=== PATIENT | male | born 1950 | race Caucasian/White ===

== ENCOUNTER 2021-08-18 11:28 | Outpatient (CLI) | payer OTHER, SELFPAY ==
[2021-08-18 13:24] LABS: Source Nasal/Nares
[2021-08-18 15:52] LABS: COVID-19 PCR Negative (Negative)
== END 2021-08-18 11:29 | disposition home or self-care (01) ==
PROVIDERS: PCP Family Medicine; Visit Provider Ophthalmology
DX: Z20.822 Contact with and (suspected) exposure to COVID-19 (principal); Z01.818 Encounter for other preprocedural examination
CPT/HCPCS: 87635

== ENCOUNTER 2021-08-21 06:44 | Day surgery (SDC) | payer OTHER, SELFPAY ==
[2021-08-21 07:15] VITALS: BP 158/117; PULSE 82; RESP 16; TEMP 36.3; O2SAT 98
[2021-08-21] MEDS: Tropicam./Phenyleph. (1/2.5%) 5 ML BTL OD ×3 (07:29→07:40)
[2021-08-21 07:40] VITALS: BP 147/88; PULSE 62; RESP 16; O2SAT 97
--- NOTE | 2021-08-21 07:48 | W.ANESPRE ---
General Info Date of Service Date Performed: 08/21/21 Height: 5 ft 11 in Weight: 100.2 kg Body Mass Index (BMI): 30.8 Surgical Procedure: Operation Date: 08/21/21 08:40 Proposed Procedures Side Surgeon p Cataract Extraction with IOL Implant Right Manny Campos MD Meds Allergies and Home Medications Allergies Allergy/AdvReac Type Severity Reaction Status Date / Time bee venom protein (honey bee) Allergy Severe Anaphylaxis Unverified 08/21/21 07:17 hornet venom Allergy Severe Anaphylaxis Unverified 08/21/21 07:17 oxycodone Allergy Intermediate Hives Unverified 08/21/21 07:17 Home Medication Medication Instructions Recorded adalimumab [Humira(CF) Pen] 40 mg SUBCUT DIRECTED 08/17/21 celecoxib 200 mg PO DAILY PRN 08/17/21 cholecalciferol (vitamin D3) 25 mcg PO DAILY 08/17/21 [Vitamin D3] epinephrine 0.3 ml IM DIRECTED 08/17/21 lisinopril 20 mg PO DAILY 08/17/21 pantoprazole [Protonix] 40 mg PO DAILY 08/17/21 rivaroxaban [Xarelto] 20 mg PO DIRECTED 08/17/21 rosuvastatin 5 mg PO DAILY 08/17/21 tamsulosin 0.8 mg PO DAILY 08/17/21 Current Visit Medications: Current Medications Generic Name Dose Route Start Last Admin Trade Name Freq PRN Reason Stop Dose Admin Acetaminophen 1,000 mg 08/21/21 06:00 Acetaminophen 500 Mg Tab PO Q4H PRN PRN Miscellaneous Medication 0 ml 08/21/21 06:00 Prednisolone 1%, Moxifloxacin 0.5%, Nepafenac 0.1% 5ml Btl OD DIRECTED [facility] Miscellaneous Medication 0 ml 08/21/21 06:00 08/21/21 07:40 Tropicam./Phenyleph. 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 now dvt x2 superficial saphenous bein thombosis 06/2008 Hypercholesteremia Iron deficiency anemia KEYANA on CPAP Psoriatic arthritis Sacroiliitis Spondylosis of lumbar joint Thyroid nodule Urinary frequency Surgical History Surgical History History of back surgery History of tonsillectomy Hx of adenoidectomy Hx of colonoscopy Hx of esophagogastroduodenoscopy Tobacco Smoking/Tobacco Use Status: Never Alcohol Alcohol Intake: current Alcohol intake frequency: 0-2 drinks per day Alcohol type: hard liquor Substance Use Substance use: Never Substance use type: does not use Vital Signs and Lab Results Vital Signs Most Recent Vital Signs in EMR: Most Recent Vital Signs Temp Pulse Resp BP Pulse Ox 36.3 C L 62 16 147/88 H 97 08/21/21 07:15 08/21/21 07:40 08/21/21 07:40 08/21/21 07:40 08/21/21 07:40 Lab Results Blood Type / Crossmatch: No Data to Display Complete Blood Count: No Data to Display Complete Metabolic Panel: No Data to Display Liver Function Panel: No Data to Display Coagulation Panel: No Data to Display Cardiac Panel: No Data to Display Arterial Blood Gas: No Data to Display Venous Blood Gas: No Data to Display Pancreas Panel: No Data to Display Thyroid Panel: No Data to Display Infectious Disease: Coronavirus (COVID-19)(PCR) Negative (Negative) 08/18/21 09:21 08/18/21 Coronavirus 2019 Source Nasal/Nares 08/18/21 09:21 08/18/21 Blood Cultures: No Data to Display Toxicology Panel: No Data to Display Anesthesia Assessment and Plan Anesthesia History Personal History: No History of Anesthesia Complications Family History: No Family History of Anesthesia Complications Exercise Tolerance Exercise Tolerance: Metabolic Equivalents>4 Pertinent Negatives Pertinent Negatives: No Symptoms of GERD (Well controlled with med), No Major Cardiovascular Symptoms or Complaints, No Major Pulmonary Symptoms or Complaints and No History of CVA/TIA Cardiac & Pulmonary Exam Cardiac Exam: Normal S1/S2 Heart Sounds Pulmonary Exam: Clear Bilateral Breath Sounds Cardiac and Pulmonary Comment:: Not currently using CPAP due to recall Airway Exam Known Difficult Airway: No Mallampati Class: 1 Mouth Opening: Normal (> 3cm) Thyromental Distance: Greater than 3 cm Neck Range of Motion: Full ROM Neck Circumference: Normal Teeth Condition: Normal Dentition and Removable Dentures/Plates Upper (Partial) ASA Classification ASA Score: ASA 2 Emergency Case?: No NPO Status NPO Status: NPO Clears >2 hours, Solids >8 hours Anesthesia Plan Resuscitation Status: Full Code Anesthesia Technique: MAC Anesthesia Airway Planned: Natural Airway Monitors Used: Standard Monitors
[2021-08-21 07:52] VITALS: BMI 30.8
[2021-08-21] MEDS: Tetracaine 0.5% 4 ML BTL OD (08:11)
[2021-08-21] MEDS: Povidone-Iodine Ophth 30 ML BTL (08:12)
[2021-08-21] MEDS: Lidocaine 2% Jelly 6 ML SYR (08:12)
[2021-08-21] MEDS: Duovisc Viscoelastic System EACH 1 EACH (08:14)
[2021-08-21] MEDS: Balanced Salt Soln.-PLUS 500 ML BAG (08:14)
[2021-08-21] MEDS: Lidocaine 1% Pres-Free 5 ML VIAL (08:15)
--- NOTE | 2021-08-21 08:34 | W.PM.DSUDISC ---
Discharge Plan Disposition Patient Disposition: HOME Condition: Good Discharge Details Attending Provider: Manny Campos Primary Care Provider: Hermilo Washingtno Home Meds and New Rx's Prescriptions: No Action celecoxib 200 mg capsule 200 mg PO DAILY PRNRF: 0 lisinopril 20 mg tablet 20 mg PO DAILY RF: 0 tamsulosin 0.4 mg capsule 0.8 mg PO DAILY RF: 0 pantoprazole [Protonix] 40 mg tablet,delayed release (DR/EC) 40 mg PO DAILY RF: 0 epinephrine 0.3 mg/0.3 mL auto-injector 0.3 ml IM DIRECTED RF: 0 rosuvastatin 5 mg tablet 5 mg PO DAILY RF: 0 cholecalciferol (vitamin D3) [Vitamin D3] 25 mcg (1,000 unit) Tablet,Chewable 25 mcg PO DAILY RF: 0 Xarelto 20 mg tablet 20 mg PO DIRECTED RF: 0 Humira(CF) Pen 40 mg/0.4 mL pen injector kit 40 mg SUBCUT DIRECTED RF: 0 Discharge Instructions Stand Alone Forms: Post-op Topical Cataract, Ashok Hanson ([facility]U) Discharge Orders Discharge Orders: Discharge Order (Routine); Ordered 08/21/21 Ordered By: Manny Campos DS: Diagnosis Discharge Diagnosis (1) Cortical cataract of right eye: Status: Resolved (2) Nuclear sclerotic cataract of right eye: Status: Resolved
--- NOTE | 2021-08-21 08:35 | W.PM.OP ---
Date of service: 08/21/21 Time of Service: 08:35 Operative Note Operative Note DATE OF PROCEDURE: 08/21/21 PRE-OP DIAGNOSIS: Nuclear/cortical cataract, right eye Poorly dilating pupil, right eye POST-OP DIAGNOSIS: same PROCEDURE: 1. Cataract extraction by phacoemulsification with intraocular lens implantation, right eye, with pupillary expansion device SURGEON: Manny Campos ANESTHESIA TYPE: Local By Surgeon and MAC Refer to Anesthesia Record PATHOLOGY: none sent COMPLICATIONS: None Patient was transported to: same day Patient's condition: stable Implants: Nomi and Nomi / [employer] Tecnis [id number] Indications: Progressive decreased vision due to cataract, right eye, with poorly dilating pupil Procedure Description: CATARACT SURGERY OPERATIVE REPORT PREOPERATIVE DIAGNOSIS: 1. Nuclear/cortical cataract, right eye 2. Poorly dilating pupil, right eye POSTOPERATIVE DIAGNOSIS: Same OPERATION: 1. Cataract extraction using phacoemulsification with posterior chamber intraocular lens implant, right eye. 2. Pupillary dilation and iris stabilization using Malyugin Ring IOL: IOL Product Manufacturing Professional/Model: Nomi & Nomi / LEO Tecnis [id number] IOL Power: + 17.5 diopters IOL Serial Number: [id number] Optic Diameter: 6.0mm Haptic/Overall Diameter: 13.0mm PHACO INFO: Edgar Digifyurion Vision System with OZil and Active [employer]uidics Cumulative Dispersed Energy (CDE): 7.39 seconds SURGEON: Manny Campos MD, KENNETH ANESTHESIA: Monitored Anesthesia Care (MAC), with local sub-tenon's anesthetic infiltration COMPLICATIONS: None SPECIMENS: None INDICATIONS FOR PROCEDURE: The patient is a 71-year-old gentleman with history of diminished visual acuity in his right eye secondary to the development of nuclear and cortical cataract. The option of cataract surgery was offered to the patient and he felt he was symptomatic enough that he wished to proceed. PROCEDURE: The correct surgical eye was identified and marked as the right eye and the pupil was dilated in the preoperative area using mydriatics and cycloplegics. The dilated pupil size was 3.5 mm. He elected to proceed without oral sedation.. The patient was brought to the operating room where cardiopulmonary monitoring was instituted and surgical time-out was performed, confirming the correct operative eye and IOL power. Topical anesthesia was administered and ophthalmic povidone-iodine 5% was instilled into the conjunctival fornices. Lidocaine gel was applied to the cornea and the chriss-ocular area was prepped with Betadine 10% solution and draped in the usual sterile fashion for intraocular surgery, including an aperture drape. A Tegaderm transparent film dressing was cut in half and used to cover the lashes and lid margins. Care was taken to sequester the lashes and lid margins under the Tegaderm dressing. A lid speculum was placed between the lids of the operative eye and the Priscila-Graham operating microscope was maneuvered into position. Marquis scissors were then used to make a conjunctival buttonhole approximately 6mm posterior to the limbus in the inferonasal quadrant. Blunt dissection was carried out to expose bare sclera, and a blunt-tipped sub-tenon?s anesthesia cannula was introduced and passed posteriorly along the globe where non-preserved plain lidocaine was injected into posterior sub-Tenon?s space. A sideport knife was used to make a paracentesis port inferiortemporally. Intraocular phenylephrine/lidocaine was injected in the anterior chamber. The anterior chamber was filled with viscoelastic. A 2.4mm keratome knife was used to create a half-thickness groove at the limbus and then to construct a three-plane near-clear corneal tunnel extending 2.0mm into clear cornea superiortemporally. A 7.0 mm Malyugin Ring was then inserted into the pupillary space and engaged with the Kuglen hook. A flap was raised on the anterior capsule and capsulorhexis forceps were used to complete a continuous curvilinear capsulorhexis of 5.5 mm. Balanced salt solution was then used to perform cortical cleaving hydrodissection and nuclear hydrodelineation until the lens could be freely rotated within the capsular bag. The lens nucleus was then disassembled and removed within the capsular bag and iris plane using phacoemulsification. Residual cortical material was removed using the 45-degree angled silicone I/A tip with 0.3mm port. The posterior capsule was carefully polished to remove as much residual lens epithelial cells as safely possible. The capsular bag was then inflated and the anterior chamber deepened with viscoelastic. The lens implant described above was inserted into the capsular bag using the LEO [place] Injector. A Kuglen hook was used to dial the IOL into position. The Malyugin Ring was removed in the reverse order of its insertion. Residual viscoelastic was then removed first from posterior to the IOL, then from the anterior chamber using the I/A handpiece. The lens implant was noted to center nicely within the capsular bag. The incisions were stromally hydrated, and the anterior chamber was reformed using BSS. Then 0.5cc of moxifloxacin 1.0mg/ml were injected into the capsular bag and anterior chamber. The incisions were checked with a Weck spear and found to be secure. Several drops of ophthalmic povidone-iodine 5% were then applied to the eye followed by two drops of Imprimis combination prednisolone/moxifloxacin/nepafenac solution. The drapes were removed and a clear plastic protective eye shield was placed over the eye. The patient was then returned to Same Day Surgery in stable condition.
--- NOTE | 2021-08-21 08:36 | W.ANESPOSTOP ---
Postoperative Evaluation Date, Time and Location Date Performed: 08/21/21 Time Performed: 08:36 Patient Location: Day Surgery Unit Vital Signs Most Recent Imported Vital Signs: Most Recent Vital Signs Temp Pulse Resp BP Pulse Ox 36.3 C L 62 16 147/88 H 97 08/21/21 07:15 08/21/21 07:40 08/21/21 07:40 08/21/21 07:40 08/21/21 07:40 Most Recent Manually Entered Vital Signs: Adult Blood Pressure: 157/104 Heart Rate: 53 Respirations: 12 Oxygen Saturation (%): 98 Temperature (C): 36.3 C Pain Score (0-10 Scale): 0 Pain Score Most Recent Pain Score: Most Recent Pain Score Pain Level 0 08/21/21 07:40 Assessment Mental Status: Awake (Alert & Oriented to Patient Baseline) Airway and Respiratory Function: Patent airway with normal (patient baseline) respiratory exam Cardiovascular Function: Hemodynamically Stable Hydration Status: Adequately Hydrated Nausea & Vomiting: No Nausea or Vomiting Pain: Pt. Denies Any Pain Peripheral Nerve Block: Patient did not receive a nerve block
[2021-08-21 08:38] VITALS: BP 153/117; PULSE 53; RESP 12; RESP 16; TEMP 36.3; TEMPC 36.3; O2SAT 97; O2SAT 98
[2021-08-21 08:46] VITALS: BP 157/104; PULSE 78; RESP 16; TEMP 36.3; O2SAT 99
[2021-08-21 08:47] VITALS: BP 157/104
== END 2021-08-21 09:05 | disposition home or self-care (01) ==
PROVIDERS: PCP Family Medicine; Visit Provider Ophthalmology
PROC: (CPT 66982; principal; 2021-08-21 08:30)
DX: H25.11 Age-related nuclear cataract, right eye (principal); H57.03 Miosis
CPT/HCPCS: 66982; V2632

== ENCOUNTER 2021-09-01 03:18 | Outpatient (CLI) | payer OTHER, SELFPAY ==
[2021-09-01 10:52] LABS: Source Nasal/Nares
[2021-09-01 14:23] LABS: COVID-19 PCR Negative (Negative)
== END 2021-09-01 03:19 | disposition home or self-care (01) ==
LOC: LBO 03:19
PROVIDERS: PCP Family Medicine; Visit Provider Ophthalmology
DX: Z20.822 Contact with and (suspected) exposure to COVID-19 (principal); Z01.818 Encounter for other preprocedural examination
CPT/HCPCS: 87635

== ENCOUNTER 2021-09-04 06:57 | Day surgery (SDC) | payer OTHER, SELFPAY ==
[2021-09-04] MEDS: Tropicam./Phenyleph. (1/2.5%) 5 ML BTL OS ×3 (07:22→07:43)
[2021-09-04 07:29] VITALS: BP 142/84; PULSE 68; RESP 16; TEMP 36.6; O2SAT 97
--- NOTE | 2021-09-04 07:31 | W.ANESPRE ---
General Info Date of Service Date Performed: 09/04/21 Height: 5 ft 11 in Weight: 100.2 kg Body Mass Index (BMI): 30.8 Surgical Procedure: Operation Date: 09/04/21 08:40 Proposed Procedures Side Surgeon p Cataract Extraction with IOL Implant Left Manny Campos MD Meds Allergies and Home Medications Allergies Allergy/AdvReac Type Severity Reaction Status Date / Time bee venom protein (honey bee) Allergy Severe Anaphylaxis Unverified 09/04/21 07:25 hornet venom Allergy Severe Anaphylaxis Unverified 09/04/21 07:25 oxycodone Allergy Intermediate Hives Unverified 09/04/21 07:25 Home Medication Medication Instructions Recorded adalimumab [Humira(CF) Pen] 40 mg SUBCUT DIRECTED 08/17/21 celecoxib 200 mg PO DAILY PRN 08/17/21 cholecalciferol (vitamin D3) 25 mcg PO DAILY 08/17/21 [Vitamin D3] epinephrine 0.3 ml IM DIRECTED 08/17/21 lisinopril 20 mg PO DAILY 08/17/21 pantoprazole [Protonix] 40 mg PO HS 08/17/21 rivaroxaban [Xarelto] 20 mg PO HS 08/17/21 rosuvastatin 5 mg PO DAILY 08/17/21 tamsulosin 0.8 mg PO DAILY 08/17/21 Current Visit Medications: Current Medications Generic Name Dose Route Start Last Admin Trade Name Freq PRN Reason Stop Dose Admin Acetaminophen 1,000 mg 09/05/21 06:00 Acetaminophen 500 Mg Tab PO Q4H PRN PRN Miscellaneous Medication 0 ml 09/05/21 06:00 Prednisolone 1%, Moxifloxacin 0.5%, Nepafenac 0.1% 5ml Btl OS DIRECTED [facility] Miscellaneous Medication 0 ml 09/05/21 06:00 09/04/21 07:22 Tropicam./Phenyleph. (1/2.5%) 5 Ml Btl OS [address] Administration Tetracaine HCl 0 ml 09/05/21 06:00 Tetracaine 0.5% 4 Ml Btl OS DIRECTED [facility] PFSH Active Problems Active Problems: Problem Status Onset Code Nuclear sclerotic cataract of right eye H25.11 Cortical cataract of right eye H26.9 Medical History Medical History Acute urinary retention BPH (benign prostatic hyperplasia) Diverticulitis Diverticulosis [place]'s syndrome Esophageal reflux HTN (hypertension) Hx pulmonary embolism on xarelto chronically now dvt x2 superficial saphenous bein thombosis 06/2008 Hypercholesteremia Iron deficiency anemia KEYANA on CPAP Psoriatic arthritis Sacroiliitis Spondylosis of lumbar joint Thyroid nodule Urinary frequency Surgical History Surgical History (Updated 09/04/21 @ 07:25 by Jessica Denny) History of back surgery History of tonsillectomy Hx of adenoidectomy Hx of cataract surgery Hx of colonoscopy Hx of esophagogastroduodenoscopy Tobacco Smoking/Tobacco Use Status: Never Alcohol Alcohol Intake: current Alcohol intake frequency: 0-2 drinks per day Alcohol type: hard liquor Substance Use Substance use: Never Substance use type: does not use Vital Signs and Lab Results Lab Results Blood Type / Crossmatch: No Data to Display Complete Blood Count: No Data to Display Complete Metabolic Panel: No Data to Display Liver Function Panel: No Data to Display Coagulation Panel: No Data to Display Cardiac Panel: No Data to Display Arterial Blood Gas: No Data to Display Venous Blood Gas: No Data to Display Pancreas Panel: No Data to Display Thyroid Panel: No Data to Display Infectious Disease: Coronavirus (COVID-19)(PCR) Negative (Negative) 09/01/21 10:07 09/01/21 Coronavirus 2019 Source Nasal/Nares 09/01/21 10:07 09/01/21 Blood Cultures: No Data to Display Toxicology Panel: No Data to Display Anesthesia Assessment and Plan Anesthesia History Personal History: No History of Anesthesia Complications Family History: No Family History of Anesthesia Complications Exercise Tolerance Exercise Tolerance: Metabolic Equivalents>4 Pertinent Negatives Pertinent Negatives: No Symptoms of GERD, No Major Cardiovascular Symptoms or Complaints, No Major Pulmonary Symptoms or Complaints and No History of CVA/TIA Cardiac & Pulmonary Exam Cardiac Exam: Normal S1/S2 Heart Sounds Pulmonary Exam: Clear Bilateral Breath Sounds Implantable Cardiac Device Does patient have a Pacemaker or an ICD?: No Airway Exam Known Difficult Airway: No Mallampati Class: 1 Mouth Opening: Normal (> 3cm) Thyromental Distance: Greater than 3 cm Neck Range of Motion: Full ROM Neck Circumference: Normal Teeth Condition: Normal Dentition and Removable Dentures/Plates Upper (Partial) ASA Classification ASA Score: ASA 2 Emergency Case?: No NPO Status NPO Status: NPO Clears >2 hours, Solids >8 hours Anesthesia Plan Resuscitation Status: Full Code Anesthesia Technique: MAC Anesthesia Airway Planned: Natural Airway Monitors Used: Standard Monitors
[2021-09-04 07:40] VITALS: BMI 30.8
[2021-09-04] MEDS: Tetracaine 0.5% 4 ML BTL OS (08:11)
[2021-09-04] MEDS: Lidocaine 2% Jelly 6 ML SYR (08:12)
[2021-09-04] MEDS: Povidone-Iodine Ophth 30 ML BTL (08:12)
[2021-09-04] MEDS: Duovisc Viscoelastic System EACH 1 EACH (08:17)
[2021-09-04] MEDS: Balanced Salt Soln.-PLUS 500 ML BAG (08:17)
[2021-09-04] MEDS: Lidocaine 1% Pres-Free 5 ML VIAL (08:18)
[2021-09-04 08:40] VITALS: BP 149/86; PULSE 61; RESP 16; TEMP 36.4; O2SAT 97
--- NOTE | 2021-09-04 08:40 | W.PM.DSUDISC ---
Discharge Plan Disposition Patient Disposition: HOME Condition: Good Discharge Details Attending Provider: Manny Campos Primary Care Provider: Hermilo Washington Home Meds and New Rx's Prescriptions: No Action celecoxib 200 mg capsule 200 mg PO DAILY PRNRF: 0 lisinopril 20 mg tablet 20 mg PO DAILY RF: 0 tamsulosin 0.4 mg capsule 0.8 mg PO DAILY RF: 0 pantoprazole [Protonix] 40 mg tablet,delayed release (DR/EC) 40 mg PO HS RF: 0 epinephrine 0.3 mg/0.3 mL auto-injector 0.3 ml IM DIRECTED RF: 0 rosuvastatin 5 mg tablet 5 mg PO DAILY RF: 0 cholecalciferol (vitamin D3) [Vitamin D3] 25 mcg (1,000 unit) Tablet,Chewable 25 mcg PO DAILY RF: 0 Xarelto 20 mg tablet 20 mg PO HS RF: 0 Humira(CF) Pen 40 mg/0.4 mL pen injector kit 40 mg SUBCUT DIRECTED RF: 0 Discharge Instructions Stand Alone Forms: Post-op Topical Cataract, Ashok Hanson ([facility]) Discharge Orders Discharge Orders: Discharge Order (Routine); Ordered 09/04/21 Ordered By: Manny Campos DS: Diagnosis Discharge Diagnosis (1) Cortical cataract of left eye: Status: Resolved (2) Nuclear sclerotic cataract of left eye: Status: Resolved
--- NOTE | 2021-09-04 08:41 | W.ANESPOSTOP ---
Postoperative Evaluation Date, Time and Location Date Performed: 09/04/21 Time Performed: 08:42 Patient Location: Day Surgery Unit Vital Signs Most Recent Imported Vital Signs: Most Recent Vital Signs Temp Pulse Resp BP Pulse Ox 36.6 C 68 16 142/84 H 97 09/04/21 07:29 09/04/21 07:29 09/04/21 07:29 09/04/21 07:29 09/04/21 07:29 Most Recent Manually Entered Vital Signs: Adult Blood Pressure: 149/86 Heart Rate: 61 Respirations: 16 Oxygen Saturation (%): 97 Temperature (C): 36.4 C Pain Score (0-10 Scale): 0 Pain Score Most Recent Pain Score: Most Recent Pain Score Pain Level 0 09/04/21 07:29 Assessment Mental Status: Awake (Alert & Oriented to Patient Baseline) Airway and Respiratory Function: Patent airway with normal (patient baseline) respiratory exam Cardiovascular Function: Hemodynamically Stable Hydration Status: Adequately Hydrated Nausea & Vomiting: No Nausea or Vomiting Pain: Pt. Denies Any Pain Peripheral Nerve Block: Patient did not receive a nerve block
--- NOTE | 2021-09-04 08:42 | ROE_ITS ---
Date of service: 09/04/21 Time of Service: 08:42 Operative Note Operative Note DATE OF PROCEDURE: 09/04/21 PRE-OP DIAGNOSIS: Nuclear/cortical cataract, left eye Poorly dilating pupil, left eye POST-OP DIAGNOSIS: same PROCEDURE: Cataract extraction by phacoemulsification with intraocular lens implantation, left eye, with pupillary expansion device SURGEON: Manny Campos ANESTHESIA TYPE: Local By Surgeon and MAC Refer to Anesthesia Record ESTIMATED BLOOD LOSS: 0 PATHOLOGY: none sent COMPLICATIONS: None Patient was transported to: same day Patient's condition: stable Implants: Nomi [employer] Nomi / [employer] Tecnis [id number] Indications: Progressive decreased vision, left eye Poorly dilating pupil, left eye. Procedure Description: CATARACT SURGERY OPERATIVE REPORT PREOPERATIVE DIAGNOSIS: 1. Nuclear/cortical cataract, left eye 2. Poorly dilating pupil, left eye POSTOPERATIVE DIAGNOSIS: Same OPERATION: 1. Cataract extraction using phacoemulsification with posterior chamber intraocular lens implant, left eye. 2. Pupillary dilation and iris stabilization using Malyugin Ring IOL; IOL Physiotherapy Aide/Model: Nomi & Nomi / LEO Tecnis [id number] IOL Power: + 18.0 diopters IOL Serial Number: [id number] Optic Diameter: 6.0 mm Haptic/Overall Diameter: 13.00 mm PHACO INFO: [employer] Vision System with OZil and Active [employer]uidics Cumulative Dispersed Energy (CDE): 6.95 seconds SURGEON: Manny Campos MD, KENNETH ANESTHESIA: Monitored Anesthesia Care (MAC), with local sub-tenon's anesthetic infiltration COMPLICATIONS: None SPECIMENS: None INDICATIONS FOR PROCEDURE: Patient is a 71-year-old gentleman with history of diminished visual acuity in both eyes secondary to the development of bilateral cataracts. He has already undergone cataract surgery in the right eye and is doing well postoperatively. He now presents for cataract surgery in the left eye. PROCEDURE: The correct surgical eye was identified and marked as the left eye and the pupil was dilated in the preoperative area using mydriatics, cycloplegics, and NSAIDS (except in aspirin allergic patients). The dilated pupil size was 4.0 mm. He elected to proceed without oral sedation. The patient was brought to the operating room where cardiopulmonary monitoring was instituted and surgical time-out was performed, confirming the correct operative eye and IOL power. Topical anesthesia was administered and ophthalmic povidone-iodine 5% was instilled into the conjunctival fornices. Lidocaine gel was applied to the cornea and the chriss-ocular area was prepped with Betadine 10% solution and draped in the usual sterile fashion for intraocular surgery, including an aperture drape. A Tegaderm transparent film dressing was cut in half and used to cover the lashes and lid margins. Care was taken to sequester the lashes and lid margins under the Tegaderm dressing. A lid speculum was placed between the lids of the operative eye and the Priscila-Graham operating microscope was maneuvered into position. Marquis scissors were then used to make a conjunctival buttonhole approximately 6mm posterior to the limbus in the inferonasal quadrant. Blunt dissection was carried out to expose bare sclera, and a blunt-tipped sub-tenon?s anesthesia cannula was introduced and passed posteriorly along the globe where non- preserved plain lidocaine was injected into posterior sub-Tenon?s space. A sideport knife was used to make a paracentesis port superiorly/superiortemporally. Intraocular phenylephrine/lidocaine was injected into the anterior chamber. The anterior chamber was then filled with viscoelastic. A 2.4mm keratome knife was used to create a half-thickness groove at the limbus and then to construct a three-plane near-clear corneal tunnel extending 2.0mm into clear cornea at the temporal position. A 7.0 mm Malyugin Ring was then inserted into the pupillary space and engaged with the Kuglen hook. A flap was raised on the anterior capsule and capsulorhexis forceps were used to complete a continuous curvilinear capsulorhexis of 5.5 mm. Balanced salt solution was then used to perform cortical cleaving hydrodissection and nuclear hydrodelineation until the lens could be freely rotated within the capsular bag. The lens nucleus was then disassembled and removed within the capsular bag and iris plane using phacoemulsification. Residual cortical material was removed using the 45-degree angled silicone I/A tip with 0.3mm port. The posterior capsule was carefully polished to remove as much residual lens epithelial cells as safely possible. The capsular bag was then inflated and the anterior chamber deepened with viscoelastic. The lens implant described above was inserted into the capsular bag using the LEO [place] Injector. A Kuglen hook was used to dial the IOL into position. The Malyugin Ring was removed in the reverse order of its insertion. Residual viscoelastic was then removed first from posterior to the IOL, then from the anterior chamber using the I/A handpiece. The lens implant was noted to center nicely within the capsular bag. The incisions were stromally hydrated, and the anterior chamber was reformed using BSS. Then 0.5cc of moxifloxacin 1.0mg/ml were injected into the capsular bag and anterior chamber. The incisions were checked with a Weck spear and found to be secure. Several drops of ophthalmic povidone-iodine 5% were then applied to the eye followed by two drops of Imprimis combination prednisolone/moxifloxacin/nepafenac solution. The drapes were removed and a clear plastic protective eye shield was placed over the eye. The patient was then returned to [facility] in stable condition.
[2021-09-04 08:43] VITALS: BP 149/86; PULSE 61; RESP 16; TEMPC 36.4; O2SAT 97
== END 2021-09-04 08:56 | disposition home or self-care (01) ==
PROVIDERS: PCP Family Medicine; Visit Provider Ophthalmology
PROC: (CPT 66982; principal; 2021-09-04 08:30)
DX: H25.12 Age-related nuclear cataract, left eye (principal); G47.33 Obstructive sleep apnea (adult) (pediatric); I10 Essential (primary) hypertension; H57.03 Miosis
CPT/HCPCS: 66982; V2632